=== PATIENT | female | born 1965 | race Caucasian/White ===

== ENCOUNTER 2017-03-11 15:44 | Emergency (ER) | payer OTHER ==
[~2017-03-11] VITALS: Ht 162.6 cm; Wt 95.3 kg
[~2017-03-11 15:44] MED LIST: LOPRESSOR25 MG PO
[2017-03-11] MEDS ORDERED: SODIUM CHLORIDE 0.9% 1000ML 1,000 ML IV STA (16:23)
[2017-03-11] MEDS ORDERED: IPRATROPIUM BROMIDE 0.02% 2.5 ML NEB NEB STA (16:23)
[2017-03-11] MEDS ORDERED: ONDANSETRON HCL INJ 2 MG/ML VIAL IV STA (16:23)
[2017-03-11] MEDS ORDERED: ALBUTEROL SULF 0.083% NEB SOLN 3 ML NEB NEB STA (16:23)
[2017-03-11] MEDS ORDERED: IBUPROFEN 600 MG TAB PO STA (16:29)
[2017-03-11] MEDS ORDERED: ACETAMINOPHEN/CODEINE ELIX 120-12 MG/5 ML UDC NG ONE (16:30)
[2017-03-11 17:24] LABS: BASOPHILS % 0.3 % (0.0-1.0); EOSINOPHILS # (AUTO) 0.1 (0.0-0.4); EOSINOPHILS % 0.6 % (0.0-6.0); HEMATOCRIT 44.9 % (34.2-44.1); HEMOGLOBIN 15.1 g/dL (12.0-16.0); LYMPHOCYTES # (AUTO) 1.3 (1.0-3.2); MEAN CORPUSCULAR HEMOGLOBIN 31.5 pg (28-32); MEAN CORPUSCULAR HGB CONC 33.6 g/dL (31-35); MEAN CORPUSCULAR VOLUME 93.7 fL (81-99); MONOCYTES # (AUTO) 0.6 (0.2-0.8); NEUTROPHILS % 77.7 % (38.7-80.0); PLATELET COUNT 104 x10e3/uL (140-360); RED BLOOD COUNT 4.79 x10e6/uL (3.6-5.1); RED CELL DISTRIBUTION WIDTH 13.1 % (11.7-14.4)
[2017-03-11 17:44] LABS: BILIRUBIN,URINE NEGATIVE (NEGATIVE); CLARITY,URINE CLEAR (CLEAR); COLOR,URINE YELLOW (YELLOW); KETONES,URINE NEGATIVE (NEGATIVE); LEUKOCYTE ESTERASE ,URINE NEGATIVE (NEGATIVE); NITRITE,URINE NEGATIVE (NEGATIVE); URINE UROBILINOGEN 0.2 mg/dL (0.2 - 1)
[2017-03-11 17:50] LABS: PROTEIN,URINE DIPSTICK 1+ (NEGATIVE)
[2017-03-11 17:52] LABS: INFLUENZAE A&B ANTIGEN (RAPID) NEGATIVE (NEGATIVE)
[2017-03-11 17:53] LABS: STREPTOCOCCUS GRP A ANTIGEN NEGATIVE (NEGATIVE)
[2017-03-11 18:22] LABS: ALANINE AMINOTRANSFERASE 24 IU/L (0-55); ALBUMIN 3.9 g/dL (3.5-5.0); ALKALINE PHOSPHATASE 120 IU/L (40-150); ANION GAP 15.1 mmol/L (8-16); BLOOD UREA NITROGEN 9 mg/dL (7-26); BUN/CREATININE RATIO 11 (6-25); CALCIUM 8.8 mg/dL (8.4-10.2); CARBON DIOXIDE 24 mmol/L (22-29); CHLORIDE 103 mmol/L (98-107); CREATINE KINASE 192 IU/L (29-168); CREATININE, SERUM 0.85 mg/dL (0.57-1.11); EST GLOMERULAR FILTRATION RATE > 60 ML/MIN (60-); GLUCOSE 102 mg/dL (74-118); POTASSIUM 4.1 mmol/L (3.5-5.1); SODIUM 138 mmol/L (136-145)
[2017-03-11 18:29] LABS: TROPONIN I 0.013 ng/mL (0-0.300)
[2017-03-11 18:34] LABS: BACTERIA,URINE FEW /HPF; EPITHELIAL CELLS,URINE FEW /LPF; WBC,URINE (MAN) 0-5 /HPF (0-5)
[2017-03-11] MEDS ORDERED: DEXAMETHASONE SOD PHOS INJ 4 MG/ML VIAL IV ONE (19:15)
--- NOTE | 2017-03-11 19:31 | Diagnostic Imaging Report ---
PROCEDURE: Frontal and lateral views of the chest. COMPARISON: None. INDICATIONS: SOB, PAIN, SOB FINDINGS: Lines/tubes: None. Lungs: The lungs are well inflated and grossly clear. There is no evidence of pneumonia or pulmonary edema. Pleura: There is no pleural effusion or pneumothorax. Heart and mediastinum: Cardiac silhouette is unremarkable. Mild central venous congestion. Bones: No acute bony abnormality. IMPRESSION: 1. mild central pulmonary venous congestion. No consolidation or effusion. Markus Ramires M.D. Dictated by: Markus Ramires M.D. on 03/11/2017 at 19:39 Electronically approved by: Markus Ramires M.D. on 03/11/2017 at 19:39
[2017-03-11 21:11] VITALS: BP 135/78
== END 2017-03-11 21:21 | disposition home or self-care (01) ==
LOC: ER 15:44
DX: R50.9 Fever, unspecified (principal); R05 Cough; J20.9 Acute bronchitis, unspecified
CPT/HCPCS: 36415; 71020; 80053; 81001; 82550; 82553; 83518; 84484; 85025; 87070; 87086; 87186; 87400; 96360; 96374; 99284; J1100; J2405; J7030

== ENCOUNTER 2017-04-11 20:18 | Emergency (ER) | payer OTHER ==
[~2017-04-11] VITALS: Ht 162.6 cm; Wt 117.9 kg
[~2017-04-11 20:18] MED LIST changes: +AMBIEN10 MG PO; +HYDRALAZINE HCL25 MG PO; +LOSARTAN POTAS100 MG PO; +TIZANIDINE HCL4 MG PO
[2017-04-11] MEDS ORDERED: SODIUM CHLORIDE 0.9% 1000ML 1,000 ML IV STA (20:45)
[2017-04-11] MEDS ORDERED: DICYCLOMINE HCL 20 MG/2 ML VIAL IM ONE (20:45)
[2017-04-11] MEDS ORDERED: PANTOPRAZOLE 40 MG 10ML VIAL IV STA (20:45)
[2017-04-11 21:06] LABS: BILIRUBIN,URINE NEGATIVE (NEGATIVE); CLARITY,URINE CLEAR (CLEAR); COLOR,URINE YELLOW (YELLOW); KETONES,URINE NEGATIVE (NEGATIVE); LEUKOCYTE ESTERASE ,URINE NEGATIVE (NEGATIVE); NITRITE,URINE NEGATIVE (NEGATIVE); PROTEIN,URINE DIPSTICK NEGATIVE (NEGATIVE); URINE UROBILINOGEN 0.2 mg/dL (0.2 - 1)
[2017-04-11 21:07] LABS: BASOPHILS % 0.3 % (0.0-1.0); EOSINOPHILS # (AUTO) 0.2 (0.0-0.4); EOSINOPHILS % 2.4 % (0.0-6.0); HEMATOCRIT 44.6 % (34.2-44.1); HEMOGLOBIN 15.1 g/dL (12.0-16.0); LYMPHOCYTES # (AUTO) 4.2 (1.0-3.2); LYMPHOCYTES % 41.9 % (18.0-39.1); MEAN CORPUSCULAR HEMOGLOBIN 31.1 pg (28-32); MEAN CORPUSCULAR HGB CONC 33.9 g/dL (31-35); MONOCYTES # (AUTO) 0.6 (0.2-0.8); MONOCYTES % 5.9 % (4.4-11.3); NEUTROPHILS # (AUTO) 4.9 (2.1-6.9); NEUTROPHILS % 49.2 % (38.7-80.0); PLATELET COUNT 171 x10e3/uL (140-360); RED BLOOD COUNT 4.85 x10e6/uL (3.6-5.1); RED CELL DISTRIBUTION WIDTH 12.6 % (11.7-14.4)
[2017-04-11 21:10] LABS: EPITHELIAL CELLS,URINE FEW /LPF; MUCUS,URINE FEW (RARE); RBC,URINE 0-5 /HPF (0-5); WBC,URINE (MAN) 0-5 /HPF (0-5)
[2017-04-11 21:13] LABS: PROTHROMBIN TIME 13.7 seconds (11.9-14.5)
[2017-04-11 21:14] LABS: PARTIAL THROMBOPLASTIN TIME 26.2 seconds (23.8-35.5)
[2017-04-11] MEDS ORDERED: ONDANSETRON HCL INJ 2 MG/ML VIAL IV ONE (21:15)
[2017-04-11 21:25] LABS: ALANINE AMINOTRANSFERASE 20 IU/L (0-55); ALBUMIN 3.9 g/dL (3.5-5.0); ALBUMIN/GLOBULIN RATIO 1.1 (0.8-2.0); ALKALINE PHOSPHATASE 106 IU/L (40-150); AMYLASE 29 U/L (25-125); ANION GAP 13.4 mmol/L (8-16); BLOOD UREA NITROGEN 8 mg/dL (7-26); BUN/CREATININE RATIO 11 (6-25); CALCIUM 9.4 mg/dL (8.4-10.2); CARBON DIOXIDE 25 mmol/L (22-29); CHLORIDE 106 mmol/L (98-107); CREATINE KINASE 72 IU/L (29-168); CREATININE, SERUM 0.75 mg/dL (0.57-1.11); EST GLOMERULAR FILTRATION RATE > 60 ML/MIN (60-); GLUCOSE 107 mg/dL (74-118); LIPASE 10 U/L (8-78); MAGNESIUM 1.7 MG/DL (1.3-2.1); POTASSIUM 3.4 mmol/L (3.5-5.1); SODIUM 141 mmol/L (136-145)
--- NOTE | 2017-04-11 22:00 | Diagnostic Imaging Report ---
EXAMINATION: CHEST SINGLE (PORTABLE) INDICATION: Abdominal pain COMPARISON: 03/11/2017 FINDINGS: TUBES and LINES: None. LUNGS: Lungs are well inflated. Lungs are clear. There is no evidence of pneumonia or pulmonary edema. PLEURA: No pleural effusion or pneumothorax. HEART AND MEDIASTINUM: The cardiomediastinal silhouette is unremarkable. BONES AND SOFT TISSUES: No acute osseous lesion. Soft tissues are unremarkable. UPPER ABDOMEN: No free air under the diaphragm. IMPRESSION: No acute thoracic abnormality. Signed by: Dr. Jhony Peña M.D. on 04/11/2017 9:57 PM
[2017-04-11] MEDS ORDERED: SODIUM CHLORIDE 0.9% 50ML 50 ML ONE (22:14)
[2017-04-11] MEDS ORDERED: IOPAMIDOL 370 MG/ML 200 ML INFUS..BTL INJ ONE (22:14)
--- NOTE | 2017-04-11 22:27 | Diagnostic Imaging Report ---
EXAM: CT Abdomen and Pelvis WITH contrast INDICATION: Upper abdominal pain COMPARISON: None. TECHNIQUE: Abdomen and pelvis were scanned utilizing a multidetector helical scanner from the lung base to the pubic symphysis after administration of IV contrast. Coronal and sagittal reformations were obtained. Routine protocol was performed. Scan was performed when during portal venous phase. IV CONTRAST: 100 mL of Isovue-370 ORAL CONTRAST: Water RADIATION DOSE: Total DLP: 797.61 mGy*cm Estimated effective dose: (DLP x 0.015 x size factor) mSv COMPLICATIONS: None FINDINGS: LINES and TUBES: None. LOWER THORAX: Unremarkable HEPATOBILIARY: No focal hepatic lesions. No biliary ductal dilation. GALLBLADDER: There are cholecystectomy clips. SPLEEN: No splenomegaly. PANCREAS: No focal masses or ductal dilatation. ADRENALS: No adrenal nodules KIDNEYS/URETERS: Kidneys enhance symmetrically. No hydronephrosis. No cystic or solid mass lesions. No stones. GI TRACT: No abnormal distention, wall thickening, or evidence of bowel obstruction. Appendix is normal. PELVIC ORGANS/BLADDER: Unremarkable. LYMPH NODES: No lymphadenopathy. VESSELS: There is mild atherosclerotic disease in the aorta and major arterial branches. PERITONEUM / RETROPERITONEUM: No free air or fluid. BONES: There are degenerative changes in the lumbar spine. SOFT TISSUES: Unremarkable. IMPRESSION: 1. No acute intra-abdominal or pelvic abnormality noted. 2. Cholecystectomy. 3. Degenerative changes of the lower lumbar spine. Signed by: Dr. Jhony Peña M.D. on 04/11/2017 10:23 PM
[2017-04-11] MEDS ORDERED: KCL 20MEQ/.9 SOD CHL 1,000 ML IV ONE (23:00)
[2017-04-12 02:19] VITALS: BP 143/90
== END 2017-04-12 02:29 | disposition home or self-care (01) ==
LOC: ER 20:18
DX: R10.13 Epigastric pain (principal); I10 Essential (primary) hypertension; E11.9 Type 2 diabetes mellitus without complications; Z90.49 Acquired absence of other specified parts of digestive tract; Z87.891 Personal history of nicotine dependence
CPT/HCPCS: 36415; 71010; 74177; 80053; 81001; 82150; 82550; 82553; 83690; 83735; 83880; 84484; 85025; 85610; 85730; 87086; 93005; 99284; J0500; J2405; J7030; Q9967; 71045

== ENCOUNTER → 2017-04-12 | Day surgery (SDC) | payer OTHER ==
[~2017-04-12] MED LIST changes: +FENTANYL CITRATE/PF 100MCG/2 ML INJ ONE; +GLUCAGON FOR INJ 1 MG VIAL ONE; +MIDAZOLAM HCL 2 MG/2 ML VIAL ONE; +PROPOFOL IV EMULSION 10 MG/ML 20 ML VIAL ONE
--- NOTE | 2017-04-12 17:25 | Operative Report ---
DATE OF PROCEDURE: April 12, 2017 REFERRING PHYSICIAN: Dr. Elina Jiang. PROCEDURE PERFORMED: 1. Esophagogastroduodenoscopy with brushings, biopsies and esophageal dilatation. 2. Colonoscopy with polypectomy. INDICATIONS FOR ESOPHAGOGASTRODUODENOSCOPY: Dysphagia to solids, epigastric pain, nausea. INDICATIONS FOR COLONOSCOPY: Colorectal cancer screening. Family history of colon cancer. MEDICATION: Patient was done under MAC. Please see anesthesiologist's note. PROCEDURE: With the patient in the left lateral decubitus position, the flexible fiberoptic Olympus gastroscope was introduced into the esophagus under direct visualization without any difficulty. There were some scattered clusters of grayish white plaques in the esophagus, and those were brushed and sent to stain for alondra. A mild stricture was noted at the GE junction, and that was dilated to a size 52-German Soto. The scope was then advanced with ease into the stomach, traversing a moderate-sized hiatal hernia. The mucosa overlying the antrum and the body revealed some patchy erythema and mild to moderate edema, and biopsies were obtained and sent to stain for H. pylori. The pylorus was of normal contour and shape, was intubated with ease, and the scope was advanced all the way to the 2nd portion of the duodenum. The scope was then withdrawn slowly. Mucosa overlying the proximal 2nd portion and the duodenal bulb appeared to be within normal limits. The scope was then withdrawn back into the stomach and retroflexed, and the mucosa overlying the fundus appeared to be within normal limits. The previously described hiatal hernia was also noted in the retroflexed position. The scope was then straightened out. The stomach was decompressed. The scope was subsequently withdrawn. Patient tolerated the procedure well. IMPRESSION: 1. Rule out alondra esophagitis. 2. Esophageal stricture at gastroesophageal junction dilated to size 52-German Soto. 3. Moderate-sized hiatal hernia. 4. Gastritis biopsied. Biopsies sent to stain for H. pylori. PLAN: Follow up histology. Initiate Protonix 40 mg 1 p.o. q.a.m. a.c. Start Diflucan 200 mg 1 p.o. daily times 7 days. Patient was then turned around and after adequate lubrication of the anal canal, a flexible fiberoptic Olympus colonoscope was inserted into the rectum with ease and advanced all the way to the cecum. Prep overall was suboptimal with some retained stools in the colon. Visualization was good. The scope was then withdrawn slowly. Whatever was visualized of the mucosa overlying the cecum, ascending and the transverse appeared to be within normal limits. Diverticular disease was noted to involve the descending and the sigmoid colon. One polyp was hot biopsied from the sigmoid. One polyp was hot biopsied from the rectum. The scope was then retroflexed into the distal rectum and small internal hemorrhoids were noted, none of which was actively bleeding. The scope was then straightened out. The rectosigmoid area as well as the distal rectal area were decompressed. The scope was subsequently withdrawn. Patient tolerated the procedure well. IMPRESSION: 1. Suboptimal prep. 2. Diverticulosis. 3. Sigmoid colon polyp hot biopsied. 4. Rectal polyp hot biopsied. 5. Internal hemorrhoids, none actively bleeding. PLAN: Follow up histology. Initiate high-fiber low-fat diet. Initiate high-fiber supplement. Patient will need a followup colonoscopy in 2 to 3 years. Job#: [id number] EV cc:ELINA JIANG DO
== END | disposition home or self-care (01) ==
LOC: OR 13:31
PROVIDERS: ATTEND Internal Medicine Gastroenterology
DX: K22.2 Esophageal obstruction (principal); K63.5 Polyp of colon; K62.1 Rectal polyp; K29.70 Gastritis, unspecified, without bleeding; B37.81 Candidal esophagitis; K44.9 Diaphragmatic hernia without obstruction or gangrene; K57.30 Diverticulosis of large intestine without perforation or abscess without bleeding; K64.8 Other hemorrhoids; G47.33 Obstructive sleep apnea (adult) (pediatric); I45.10 Unspecified right bundle-branch block; I25.10 Atherosclerotic heart disease of native coronary artery without angina pectoris; I10 Essential (primary) hypertension; R00.1 Bradycardia, unspecified; E11.9 Type 2 diabetes mellitus without complications; G47.00 Insomnia, unspecified; R06.6 Hiccough; Z01.810 Encounter for preprocedural cardiovascular examination; Z68.41 Body mass index [BMI] 40.0-44.9, adult; Z87.891 Personal history of nicotine dependence; Z80.0 Family history of malignant neoplasm of digestive organs
CPT/HCPCS: 43239; 43450; 45384; 93005; J1610; J2250

== ENCOUNTER 2017-09-08 22:18 | Emergency (ER) | payer OTHER ==
[~2017-09-08] VITALS: Ht 162.6 cm; Wt 117.9 kg
[~2017-09-08 22:18] MED LIST changes: -FENTANYL CITRATE/PF 100MCG/2 ML INJ ONE; -GLUCAGON FOR INJ 1 MG VIAL ONE; -MIDAZOLAM HCL 2 MG/2 ML VIAL ONE; -PROPOFOL IV EMULSION 10 MG/ML 20 ML VIAL ONE
[2017-09-08] MEDS ORDERED: CLONIDINE HCL 0.2 MG TAB PO ONE (23:00)
[2017-09-08] MEDS ORDERED: ASPIRIN 81 MG CHEW TAB PO ONE (23:00)
[2017-09-08 23:03] LABS: BASOPHILS % 0.5 % (0.0-1.0); EOSINOPHILS # (AUTO) 0.3 (0.0-0.4); HEMATOCRIT 43.5 % (34.2-44.1); HEMOGLOBIN 14.9 g/dL (12.0-16.0); LYMPHOCYTES % 60.2 % (18.0-39.1); MEAN CORPUSCULAR HEMOGLOBIN 30.7 pg (28-32); MEAN CORPUSCULAR HGB CONC 34.3 g/dL (31-35); MEAN CORPUSCULAR VOLUME 89.7 fL (81-99); MONOCYTES # (AUTO) 0.5 (0.2-0.8); MONOCYTES % 6.1 % (4.4-11.3); NEUTROPHILS # (AUTO) 2.4 (2.1-6.9); NEUTROPHILS % 29.1 % (38.7-80.0); PLATELET COUNT 122 x10e3/uL (140-360); RED BLOOD COUNT 4.85 x10e6/uL (3.6-5.1); RED CELL DISTRIBUTION WIDTH 12.2 % (11.7-14.4)
[2017-09-08 23:25] LABS: ALANINE AMINOTRANSFERASE 26 IU/L (0-55); ALBUMIN 3.9 g/dL (3.5-5.0); ALBUMIN/GLOBULIN RATIO 1.3 (0.8-2.0); ALKALINE PHOSPHATASE 109 IU/L (40-150); ANION GAP 12.8 mmol/L (8-16); BLOOD UREA NITROGEN 13 mg/dL (7-26); BUN/CREATININE RATIO 17 (6-25); CALCIUM 9.2 mg/dL (8.4-10.2); CARBON DIOXIDE 25 mmol/L (22-29); CHLORIDE 108 mmol/L (98-107); CREATINE KINASE 96 IU/L (29-168); CREATININE, SERUM 0.78 mg/dL (0.57-1.11); EST GLOMERULAR FILTRATION RATE > 60 ML/MIN (60-); GLUCOSE 177 mg/dL (74-118); POTASSIUM 3.8 mmol/L (3.5-5.1); SODIUM 142 mmol/L (136-145)
[2017-09-09 00:16] LABS: LYMPHOCYTES % (MANUAL) 42 % (19-48); MONOCYTES % (MANUAL) 2 % (3.4-9.0); NEUTROPHILS % (MANUAL) 40 % (40-74)
[2017-09-09 00:17] LABS: PLATELET ESTIMATE SLIGHTLY DECREASED; PLATELET MORPHOLOGY COMMENT NORMAL; RBC MORPHOLOGY COMMENT NORMAL
--- NOTE | 2017-09-09 00:30 | Diagnostic Imaging Report ---
CHEST SINGLE (PORTABLE), 09/08/2017 10:55 PM Technique: CHEST SINGLE (PORTABLE) Comparison: 04/11/2017 Clinical history: Chest pain Findings: Limited by portable technique and body habitus. Impression: 1. Mildly enlarged cardiomediastinal silhouette, accentuated by portable technique. 2. No consolidation or edema. 3. No effusion or pneumothorax. Signed by: Dr Luiza Aragon MD on 09/09/2017 12:26 AM
== END 2017-09-09 01:24 | disposition home or self-care (01) ==
LOC: ER 22:18
DX: R07.89 Other chest pain (principal); I10 Essential (primary) hypertension
CPT/HCPCS: 36415; 71045; 80053; 82550; 82553; 84484; 85025; 93005; 99284

== ENCOUNTER 2018-12-27 00:49 | Emergency (ER) | payer OTHER ==
[~2018-12-27] VITALS: Ht 162.6 cm; Wt 117.9 kg
[2018-12-27 01:44] LABS: BASOPHILS % 0.4 % (0.0-1.0); EOSINOPHILS # (AUTO) 0.2 (0.0-0.4); EOSINOPHILS % 2.9 % (0.0-6.0); HEMATOCRIT 43.4 % (34.2-44.1); HEMOGLOBIN 15.2 g/dL (12.0-16.0); LYMPHOCYTES # (AUTO) 4.1 (1.0-3.2); LYMPHOCYTES % 54.9 % (18.0-39.1); MEAN CORPUSCULAR HEMOGLOBIN 31.3 pg (28-32); MEAN CORPUSCULAR VOLUME 89.5 fL (81-99); MONOCYTES # (AUTO) 0.4 (0.2-0.8); MONOCYTES % 5.1 % (4.4-11.3); NEUTROPHILS # (AUTO) 2.8 (2.1-6.9); NEUTROPHILS % 36.6 % (38.7-80.0); PLATELET COUNT 111 x10e3/uL (140-360); RED BLOOD COUNT 4.85 x10e6/uL (3.6-5.1); RED CELL DISTRIBUTION WIDTH 12.1 % (11.7-14.4)
[2018-12-27 02:01] LABS: ANION GAP 17.7 mmol/L (8-16); BLOOD UREA NITROGEN 11 mg/dL (7-26); BUN/CREATININE RATIO 12 (6-25); CALCIUM 9.4 mg/dL (8.4-10.2); CARBON DIOXIDE 21 mmol/L (22-29); CHLORIDE 103 mmol/L (98-107); CREATINE KINASE 69 IU/L (29-168); CREATINE KINASE MB < 1.00 ng/mL (0-4.3); CREATININE, SERUM 0.89 mg/dL (0.57-1.11); EST GLOMERULAR FILTRATION RATE > 60 ML/MIN (60-); GLUCOSE 371 mg/dL (74-118); POTASSIUM 3.7 mmol/L (3.5-5.1); SODIUM 138 mmol/L (136-145)
[2018-12-27 02:12] VITALS: BP 149/85
--- NOTE | 2018-12-27 02:18 | Diagnostic Imaging Report ---
EXAMINATION: CHEST SINGLE (PORTABLE) INDICATION: Chest pain COMPARISON: Chest radiograph 09/08/2017 FINDINGS: AP view TUBES and LINES: None. LUNGS: Lungs are well inflated. Lungs are clear. There is no evidence of pneumonia or pulmonary edema. PLEURA: No pleural effusion or pneumothorax. HEART AND MEDIASTINUM: The cardiomediastinal silhouette is unremarkable. BONES AND SOFT TISSUES: No acute osseous lesion. Soft tissues are unremarkable. UPPER ABDOMEN: No free air under the diaphragm. IMPRESSION: No acute thoracic radiographic abnormality. Signed by: Last Harley DO on 12/27/2018 2:14 AM
== END 2018-12-27 02:29 | disposition home or self-care (01) ==
LOC: ER 00:49
DX: R00.2 Palpitations (principal); R07.89 Other chest pain; I10 Essential (primary) hypertension
CPT/HCPCS: 36415; 71045; 80048; 82550; 82553; 84484; 85025; 93005; 99284

== ENCOUNTER 2022-06-24 18:48 | Inpatient (IN) | payer OTHER ==
[~2022-06-24] VITALS: Ht 162.6 cm; Wt 117.9 kg
[2022-06-24] MEDS ORDERED: PIPERACILLIN/TAZOBACTAM 3.375 GM VIAL ONE (19:25)
[2022-06-24] MEDS ORDERED: HYDROCODONE/APAP 5MG-325MG TAB ONE (19:25)
[2022-06-24] MEDS ORDERED: HYDROCODONE/APAP 5MG-325MG TAB PO PRN (19:30)
[2022-06-24 19:43] LABS: BASOPHILS % 0.3 % (0.0-1.0); EOSINOPHILS # (AUTO) 0.3 (0.0-0.4); EOSINOPHILS % 2.8 % (0.0-6.0); HEMOGLOBIN 15.9 g/dL (12.0-16.0); LYMPHOCYTES # (AUTO) 3.5 (1.0-3.2); LYMPHOCYTES % 33.2 % (18.0-39.1); MEAN CORPUSCULAR HEMOGLOBIN 32.4 pg (28-32); MEAN CORPUSCULAR HGB CONC 34.6 g/dL (31-35); MEAN CORPUSCULAR VOLUME 93.9 fL (81-99); MONOCYTES # (AUTO) 0.6 (0.2-0.8); NEUTROPHILS # (AUTO) 6.1 (2.1-6.9); NEUTROPHILS % 57.5 % (38.7-80.0); PLATELET COUNT 149 x10e3/uL (140-360); RED CELL DISTRIBUTION WIDTH 12.9 % (11.7-14.4)
[2022-06-24 20:00] LABS: ALANINE AMINOTRANSFERASE 21 IU/L (0-55); ALBUMIN 3.9 g/dL (3.5-5.0); ALBUMIN/GLOBULIN RATIO 1.2 (0.8-2.0); ALKALINE PHOSPHATASE 81 IU/L (40-150); ANION GAP 15.6 mmol/L (8-16); BLOOD UREA NITROGEN 13 mg/dL (7-26); BUN/CREATININE RATIO 18 (6-25); CALCIUM 9.1 mg/dL (8.4-10.2); CARBON DIOXIDE 21 mmol/L (22-29); CHLORIDE 108 mmol/L (98-107); CREATININE, SERUM 0.74 mg/dL (0.57-1.11); GLUCOSE 125 mg/dL (74-118); POTASSIUM 3.6 mmol/L (3.5-5.1); SODIUM 141 mmol/L (136-145)
[2022-06-24] MEDS ORDERED: SODIUM CHLORIDE 0.9% 1000ML 1,000 ML IV ONE (20:00)
[2022-06-24] MEDS ORDERED: DEXTROSE 50% SYRINGE 50 ML IV PRN (20:30)
[2022-06-24] MEDS ORDERED: ACETAMINOPHEN 325 MG TAB PO PRN (20:30)
[2022-06-24] MEDS: Vancomycin IV 1 GM in SODIUM CHLORIDE 0.9% 250ML 250 ML IV SCH ×2 (20:57→21:04)
[2022-06-24] MEDS: INSULIN REGULAR, HUMAN 100 UNIT/1 ML SQ SCH (21:00)
[2022-06-24] MEDS: SODIUM CHLORIDE 0.9% 1000ML 1,000 ML IV SCH (21:04)
[2022-06-25] MEDS ORDERED: POLYETHYLENE GLYCOL 3350 17 GM PACK PO PRN (00:15)
[2022-06-25] MEDS: Morphine 4mg INJECTION 4 MG/ML INJ IV PRN ×4 (01:53→20:57)
[2022-06-25] MEDS: ONDANSETRON HCL INJ 2MG/ML 2ML 2 MG/ML VIAL IV PRN ×2 (01:53→08:06)
[2022-06-25 05:20] LABS: BASOPHILS # (AUTO) 0.1 (0.0-0.1); BASOPHILS % 0.5 % (0.0-1.0); EOSINOPHILS # (AUTO) 0.4 (0.0-0.4); EOSINOPHILS % 3.9 % (0.0-6.0); HEMATOCRIT 45.1 % (34.2-44.1); HEMOGLOBIN 14.4 g/dL (12.0-16.0); LYMPHOCYTES % 43.5 % (18.0-39.1); MEAN CORPUSCULAR HEMOGLOBIN 31.4 pg (28-32); MEAN CORPUSCULAR HGB CONC 31.9 g/dL (31-35); MEAN CORPUSCULAR VOLUME 98.3 fL (81-99); MONOCYTES # (AUTO) 0.6 (0.2-0.8); MONOCYTES % 6.7 % (4.4-11.3); NEUTROPHILS # (AUTO) 4.2 (2.1-6.9); NEUTROPHILS % 45.2 % (38.7-80.0); PLATELET COUNT 144 x10e3/uL (140-360); RED BLOOD COUNT 4.59 x10e6/uL (3.6-5.1); RED CELL DISTRIBUTION WIDTH 12.7 % (11.7-14.4)
[2022-06-25 05:37] LABS: ALBUMIN 3.2 g/dL (3.5-5.0); ANION GAP 12.2 mmol/L (8-16); CALCIUM 8.4 mg/dL (8.4-10.2); CREATININE, SERUM 0.64 mg/dL (0.57-1.11); POTASSIUM 4.2 mmol/L (3.5-5.1)
[2022-06-25 05:54] LABS: CHOL/HDL RATIO 3.3 (3.0-3.6); MAGNESIUM 1.7 MG/DL (1.3-2.1); PHOSPHORUS 4.3 MG/DL (2.3-4.7)
[2022-06-25 06:15] LABS: THYROID STIMULATING HORMONE 4.265 uIU/mL (0.350-4.940)
[2022-06-25] MEDS: INSULIN REGULAR, HUMAN 100 UNIT/1 ML SQ SCH ×4 (07:30→21:00)
[2022-06-25] MEDS ORDERED: MAGNESIUM SULF 1GRAM/DEXTROSE 100 ML IV ONE (08:00)
[2022-06-25] MEDS ORDERED: SYNJARDY 5-5001 EACH PO (08:00)
[2022-06-25] MEDS ORDERED: PROMETHAZINE HC25 M1 PO (08:01)
[2022-06-25] MEDS ORDERED: LYRICA25 MG PO (08:01)
[2022-06-25] MEDS ORDERED: CLONIDINE HCL0.1 MG PO (08:01)
[2022-06-25] MEDS: SODIUM CHLORIDE 0.9% 1000ML 1,000 ML IV SCH ×3 (08:05→21:05)
[2022-06-25] MEDS ORDERED: CLONIDINE HCL 0.1 MG TAB PO PRN (08:45)
[2022-06-25] MEDS ORDERED: PROMETHAZINE HCL 25 MG TAB PO PRN (08:45)
[2022-06-25] MEDS: FAMOTIDINE 20 MG/2 ML VIAL IV SCH ×2 (09:57→18:18)
[2022-06-25] MEDS: DOCUSATE SODIUM 100 MG CAP PO SCH ×2 (09:57→18:22)
[2022-06-25] MEDS: LOSARTAN POTASSIUM 100 MG TAB PO SCH (09:58)
[2022-06-25] MEDS: HYDRALAZINE HCL 25 MG TAB PO SCH ×3 (09:58→22:19)
[2022-06-25] MEDS: PREGABALIN 25 MG CAP PO SCH (09:59)
[2022-06-25] MEDS: METOPROLOL TARTRATE 25 MG TAB PO SCH (10:00)
[2022-06-25 15:27] VITALS: BP 141/80
[2022-06-25 15:29] VITALS: BP 141/80
[2022-06-25 16:28] VITALS: BP 149/77
[2022-06-25] MEDS: METFORMIN HCL PO SCH (17:00)
[2022-06-25] MEDS: EMPAGLIFLOZIN PO SCH (17:00)
[2022-06-25 20:00] VITALS: BP 187/94
[2022-06-25] MEDS: Vancomycin IV 1 GM in SODIUM CHLORIDE 0.9% 250ML 250 ML IV SCH (20:57)
[2022-06-25 21:00] VITALS: BP 187/94
[2022-06-25] MEDS: ZOLPIDEM TARTRATE 10 MG TAB PO SCH (21:00)
[2022-06-26] VITALS (9 sets, daily range): BP systolic 153–197; BP diastolic 80–103
[2022-06-26] MEDS: HYDRALAZINE HCL 20 MG/ML VIAL IV PRN ×2 (00:13→09:11)
[2022-06-26] MEDS: Morphine 4mg INJECTION 4 MG/ML INJ IV PRN ×2 (03:47→09:12)
[2022-06-26] MEDS: SODIUM CHLORIDE 0.9% 1000ML 1,000 ML IV SCH ×2 (04:30→12:59)
[2022-06-26 05:37] LABS: BASOPHILS # (AUTO) 0.1 (0.0-0.1); BASOPHILS % 0.5 % (0.0-1.0); EOSINOPHILS # (AUTO) 0.3 (0.0-0.4); EOSINOPHILS % 3.5 % (0.0-6.0); HEMATOCRIT 43.3 % (34.2-44.1); HEMOGLOBIN 13.9 g/dL (12.0-16.0); LYMPHOCYTES # (AUTO) 3.6 (1.0-3.2); LYMPHOCYTES % 39.9 % (18.0-39.1); MEAN CORPUSCULAR HEMOGLOBIN 31.7 pg (28-32); MEAN CORPUSCULAR HGB CONC 32.1 g/dL (31-35); MEAN CORPUSCULAR VOLUME 98.9 fL (81-99); MONOCYTES # (AUTO) 0.6 (0.2-0.8); NEUTROPHILS # (AUTO) 4.5 (2.1-6.9); NEUTROPHILS % 49.9 % (38.7-80.0); PLATELET COUNT 138 x10e3/uL (140-360); RED BLOOD COUNT 4.38 x10e6/uL (3.6-5.1); RED CELL DISTRIBUTION WIDTH 12.7 % (11.7-14.4)
[2022-06-26 06:02] LABS: ANION GAP 12.9 mmol/L (8-16); CALCIUM 8.6 mg/dL (8.4-10.2); CREATININE, SERUM 0.66 mg/dL (0.57-1.11); POTASSIUM 3.9 mmol/L (3.5-5.1)
[2022-06-26] MEDS ORDERED: ACETAMINOPHEN 1000 MG/100 ML 0 ML IV ONE (07:04)
[2022-06-26] MEDS: INSULIN REGULAR, HUMAN 100 UNIT/1 ML SQ SCH ×4 (07:30→21:00)
[2022-06-26] MEDS: Vancomycin IV 1 GM in SODIUM CHLORIDE 0.9% 250ML 250 ML IV SCH (08:30)
[2022-06-26] MEDS: METFORMIN HCL PO SCH ×2 (09:00→16:19)
[2022-06-26] MEDS ORDERED: ZINC SULFATE 50 MG CAP PO SCH (09:00)
[2022-06-26] MEDS ORDERED: ASCORBIC ACID 500 MG TAB PO SCH (09:00)
[2022-06-26] MEDS: LOSARTAN POTASSIUM 100 MG TAB PO SCH (09:00)
[2022-06-26] MEDS: MULTIVITAMINS/MINERALS TAB PO SCH (09:00)
[2022-06-26] MEDS: DOCUSATE SODIUM 100 MG CAP PO SCH ×2 (09:00→21:02)
[2022-06-26] MEDS ORDERED: OYST-CAL-D 500MG TABLET PO SCH (09:00)
[2022-06-26] MEDS: HYDRALAZINE HCL 25 MG TAB PO SCH ×3 (09:00→21:03)
[2022-06-26] MEDS: METOPROLOL TARTRATE 25 MG TAB PO SCH (09:00)
[2022-06-26] MEDS: PREGABALIN 25 MG CAP PO SCH (09:00)
[2022-06-26] MEDS: EMPAGLIFLOZIN PO SCH ×2 (09:00→16:19)
[2022-06-26] MEDS ORDERED: MAGNESIUM OXIDE 400 MG TAB PO SCH (09:00)
[2022-06-26] MEDS: FAMOTIDINE 20 MG/2 ML VIAL IV SCH ×2 (09:11→21:04)
[2022-06-26] MEDS: ONDANSETRON HCL INJ 2MG/ML 2ML 2 MG/ML VIAL IV PRN ×2 (09:20→14:19)
[2022-06-26] MEDS ORDERED: METOPROLOL TARTRATE 50 MG TAB PO ONE (11:00)
[2022-06-26] MEDS ORDERED: HYDROMORPHONE 1MG/1ML INJ IV ONE (11:00)
[2022-06-26] MEDS ORDERED: METOPROLOL TARTRATE INJ 1 MG/ML VIAL IV STA (11:47)
[2022-06-26] MEDS ORDERED: DRONEDARONE 400 MG TAB PO SCH (12:45)
[2022-06-26] MEDS ORDERED: NALOXONE HCL INJ 0.4 MG/ML AMP IV PRN (15:45)
[2022-06-26] MEDS ORDERED: HYDROMORPHONE 1MG/1ML INJ IV PRN (15:45)
[2022-06-26] MEDS ORDERED: PROMETHAZINE 12.5MG/ NACL 0.9% 12.5 MG/50 ML BAG IV PRN (15:45)
[2022-06-26] MEDS: ZOLPIDEM TARTRATE 10 MG TAB PO SCH (20:59)
[2022-06-26] MEDS: ASCORBIC ACID 500 MG TAB PO SCH (21:02)
[2022-06-26] MEDS: ZINC SULFATE 50 MG CAP PO SCH (21:02)
[2022-06-26] MEDS: MAGNESIUM OXIDE 400 MG TAB PO SCH (21:02)
[2022-06-26] MEDS: DRONEDARONE 400 MG TAB PO SCH (21:03)
[2022-06-26] MEDS: OYST-CAL-D 500MG TABLET PO SCH (21:03)
[2022-06-26] MEDS: TIZANIDINE HCL 4 MG TAB PO SCH (21:13)
[2022-06-26] MEDS: Doxycycline IV 100 MG in SODIUM CHLORIDE 0.9% 100 ML IV SCH (22:31)
[2022-06-27] MEDS: SODIUM CHLORIDE 0.9% 1000ML 1,000 ML IV SCH ×2 (01:05→09:21)
[2022-06-27 04:00] VITALS: BP 150/82
[2022-06-27] MEDS: INSULIN REGULAR, HUMAN 100 UNIT/1 ML SQ SCH ×3 (07:30→15:54)
[2022-06-27 08:17] LABS: BASOPHILS % 0.3 % (0.0-1.0); EOSINOPHILS # (AUTO) 0.2 (0.0-0.4); EOSINOPHILS % 2.7 % (0.0-6.0); HEMATOCRIT 39.4 % (34.2-44.1); LYMPHOCYTES # (AUTO) 3.3 (1.0-3.2); LYMPHOCYTES % 37.2 % (18.0-39.1); MEAN CORPUSCULAR HEMOGLOBIN 31.3 pg (28-32); MEAN CORPUSCULAR VOLUME 94.9 fL (81-99); MONOCYTES # (AUTO) 0.5 (0.2-0.8); MONOCYTES % 5.9 % (4.4-11.3); NEUTROPHILS # (AUTO) 4.7 (2.1-6.9); NEUTROPHILS % 53.7 % (38.7-80.0); PLATELET COUNT 146 x10e3/uL (140-360); RED BLOOD COUNT 4.15 x10e6/uL (3.6-5.1); RED CELL DISTRIBUTION WIDTH 12.8 % (11.7-14.4)
[2022-06-27 08:40] LABS: ANION GAP 12.3 mmol/L (8-16); CALCIUM 8.3 mg/dL (8.4-10.2); CREATININE, SERUM 0.62 mg/dL (0.57-1.11); POTASSIUM 3.3 mmol/L (3.5-5.1)
[2022-06-27 09:00] VITALS: BP 150/82
[2022-06-27] MEDS: METFORMIN HCL PO SCH (09:00)
[2022-06-27] MEDS ORDERED: METOPROLOL TARTRATE 50 MG TAB PO SCH (09:00)
[2022-06-27] MEDS: DOCUSATE SODIUM 100 MG CAP PO SCH (09:00)
[2022-06-27] MEDS: EMPAGLIFLOZIN PO SCH (09:00)
[2022-06-27 09:11] VITALS: BP 160/91
[2022-06-27] MEDS: LOSARTAN POTASSIUM 100 MG TAB PO SCH (09:19)
[2022-06-27] MEDS: MULTIVITAMINS/MINERALS TAB PO SCH (09:19)
[2022-06-27] MEDS: ASCORBIC ACID 500 MG TAB PO SCH (09:19)
[2022-06-27] MEDS: FAMOTIDINE 20 MG/2 ML VIAL IV SCH (09:19)
[2022-06-27] MEDS: DRONEDARONE 400 MG TAB PO SCH (09:20)
[2022-06-27] MEDS: MAGNESIUM OXIDE 400 MG TAB PO SCH (09:20)
[2022-06-27] MEDS: ZINC SULFATE 50 MG CAP PO SCH (09:20)
[2022-06-27] MEDS: PREGABALIN 25 MG CAP PO SCH (09:20)
[2022-06-27] MEDS: OYST-CAL-D 500MG TABLET PO SCH (09:21)
[2022-06-27] MEDS: HYDRALAZINE HCL 25 MG TAB PO SCH ×2 (09:21→15:59)
[2022-06-27] MEDS ORDERED: POTASSIUM CHLORIDE 20 MEQ TAB CR PO ONE (12:00)
[2022-06-27] MEDS: Doxycycline IV 100 MG in SODIUM CHLORIDE 0.9% 100 ML IV SCH (12:12)
[2022-06-27 12:50] VITALS: BP 147/84
[2022-06-27] MEDS ORDERED: LOPERAMIDE HCL 2 MG CAP PO PRN (15:30)
[2022-06-27] MEDS ORDERED: MULTAQ 400MG T400 MG PO ×2 (15:37→16:13)
[2022-06-27] MEDS ORDERED: METOPROLOL TART50 MG PO (15:37)
[2022-06-27 16:03] VITALS: BP 194/82
[2022-06-27] MEDS ORDERED: AUGMENTIN 500-1 EACH PO (16:11)
[2022-06-27] MEDS ORDERED: VIBRAMYCIN100 MG PO (16:12)
[2022-06-27] MEDS ORDERED: METOPROLOL TAR100 MG PO (16:14)
[2022-06-27] MEDS ORDERED: DOXYCYCLINE HYCLATE TABLET 100 MG TAB PO SCH (21:00)
== END 2022-06-27 16:33 | disposition home or self-care (01) | DRG 872 ==
LOC: ER 18:57 → ERHOLD 20:22 → INTOOBSV 20:22 → MED/SURG3 06-25 13:50 → OBSVTOIN 06-26 04:00
PROVIDERS: ADMIT Internal Medicine; ATTEND Internal Medicine
DX: A41.9 Sepsis, unspecified organism (principal); L03.113 Cellulitis of right upper limb; E87.20 Acidosis, unspecified; Z68.41 Body mass index [BMI] 40.0-44.9, adult; R65.20 Severe sepsis without septic shock; W55.01XA Bitten by cat, initial encounter; E11.65 Type 2 diabetes mellitus with hyperglycemia; I10 Essential (primary) hypertension; E66.01 Morbid (severe) obesity due to excess calories; E87.6 Hypokalemia; M65.9 Synovitis and tenosynovitis, unspecified; E78.00 Pure hypercholesterolemia, unspecified; I48.0 Paroxysmal atrial fibrillation; Z90.49 Acquired absence of other specified parts of digestive tract; Z20.822 Contact with and (suspected) exposure to COVID-19; Z87.891 Personal history of nicotine dependence
CPT/HCPCS: 0223U; 36415; 70450; 80048; 80053; 80061; 80202; 82948; 83036; 83605; 83735; 84100; 84443; 85025; 87040; 93005; 93306; 94799; 99284; G0378; J0295; J1170; J2270; J2405; J2543; J2550; J3475; J7030; J7050

== ENCOUNTER 2022-08-22 23:56 | Emergency (ER) | payer OTHER ==
[~2022-08-22] VITALS: Ht 162.6 cm; Wt 117.9 kg
[~2022-08-22 23:56] MED LIST changes: +AUGMENTIN 500-1 EACH PO; +CLONIDINE HCL0.1 MG PO; +LYRICA25 MG PO; +METOPROLOL TAR100 MG PO; +METOPROLOL TART50 MG PO; +MULTAQ 400MG T400 MG PO; +PROMETHAZINE HC25 M1 PO; +SYNJARDY 5-5001 EACH PO; +VIBRAMYCIN100 MG PO
[2022-08-23] MEDS ORDERED: ACETAMINOPHEN 325 MG TAB PO ONE (01:15)
[2022-08-23 02:55] VITALS: BP 159/95; PULSE 54; RESP 18; O2SAT 99
== END 2022-08-23 02:45 | disposition home or self-care (01) ==
LOC: ER 08-23 00:05
DX: S00.83XA Contusion of other part of head, initial encounter (principal); W22.09XA Striking against other stationary object, initial encounter; Y93.E1 Activity, personal bathing and showering; Y92.89 Other specified places as the place of occurrence of the external cause; I10 Essential (primary) hypertension; E11.9 Type 2 diabetes mellitus without complications
CPT/HCPCS: 70450; 99283